=== PATIENT | female | born 1995 | race Caucasian/White ===

== ENCOUNTER 2016-08-27 12:55 | Emergency (ER) | payer BC ==
[2016-08-27 13:03] VITALS: BP 146/81; PULSE 86; TEMP 97.8; BMI 25.0
--- NOTE | 2016-08-27 14:03 | PDOC ---
History of Present Illness - General Chief Complaint: Urinary Problem Stated Complaint: NAUSEA, POSSIBLE UTI Time Seen by Provider: 08/27/16 13:44 - History of Present Illness Initial Comments: 08/27/16 14:02 CHIEF COMPLAINT: vaginal lesions HISTORY OF PRESENT ILLNESS: 21 yo F presents to [facility] with complaints of vaginal lesions and accompanying dysuria. Patient states 'it [place] when the urine hits the lesions." Patient reports unprotected sex with single partner of two years one week ago. Patient states she was seen at [facility] at school yesterday and was told she did not have a UTI and had a negative test. No recent travel or sick contacts. 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 Denies tobacco, alcohol, illicit drug use. SURGICAL HISTORY: Denies ALLERGIES: No known drug allergies REVIEW OF SYSTEMS General/Constitutional: Denies fever or chills. Genitourinary: Dysuria, vaginal lesions. Denies urinary frequency, or change in urination. PHYSICAL EXAM General Appearance: Well-appearing, appropriately dressed. No apparent distress. Respiratory/Chest: Lungs CTAB. Cardiovascular: RRR. S1, S2. Vascular Pulses: Dorsalis-Pedis (R): 2+, Dorsalis-Pedis (L): 2+ Pelvic exam: Multiple ulcerated lesions approximately 3-5 cm in diameter to labia b/l. Musculoskeletal/Extremities: Normal inspection. FROM of all extremities, normal capillary refill. No tenderness to extremities, pedal edema, swelling, erythema or deformity. Integumentary: See pelvic. Appropriate color, dry, warm. 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 Fully oriented, alert. Appropriate mood/affect. Motor strength 5/5. No appreciable EOM palsy, facial droop or sensory deficit. 08/27/16 15:17 08/27/16 15:46 Past History - Past Medical History Allergies/Adverse Reactions: Allergies Allergy/AdvReac Type Severity Reaction Status Date / Time No Known Allergies Allergy Unverified 08/27/16 13:02 Home Medications: Ambulatory Orders Atarax 25 25 mg PRN 10/08/14 Clindamycin Phos/Benzoyl Perox [Benzaclin Gel] 50 gm TP DAILY 12/31/14 Acyclovir [Zovirax -] 200 mg PO 5XD #50 capsule 08/27/16 Other medical history: denies - Psycho/Social/Smoking Cessation Hx Suicidal Ideation: No Smoking History: Never smoked Information on smoking cessation initiated: No Hx Alcohol Use: No Drug/Substance Use Hx: No Substance Use Type: None *Physical Exam - Vital Signs Last Vital Signs Temp Pulse Resp BP Pulse Ox 97.8 F 86 18 146/81 100 08/27/16 12:59 08/27/16 12:59 08/27/16 12:59 08/27/16 12:59 08/27/16 12:59 Medical Decision Making - Medical Decision Making 08/27/16 15:21 21 yo F with no PMH presents to ED with genital lesions accompanied by dysuria. Clinical presentation consistent with genital herpes. -HSV swab -Acyclovir po rx sent to pharm Advised patient to take medication as prescribed and f/u eviscerator. Advised patient of signs and symptoms for return to ER; patient verbalized understanding and agrees to plan. *DC/Admit/Observation/Transfer Diagnosis at time of Disposition: Herpes genitalis Qualifiers: Herpes simplex infection site: vulvovaginitis Qualified Code(s): A60.04 - Herpesviral vulvovaginitis - Discharge Dispostion Disposition: HOME Condition at time of disposition: Stable Admit: No - Prescriptions Prescriptions: Acyclovir [Zovirax -] 200 mg PO 5XD #50 capsule - Referrals Referrals: Jeff Kahn MD [Primary Care Provider] - - Patient Instructions Printed Discharge Instructions: DI for Genital Herpes Additional Instructions: Please take medication as prescribed and follow up with your lettuce trimmer. If you experience any fever, nausea, vomiting, diarrhea, or any new or worsening symptoms, please return to the ER.
[2016-08-27 14:18] LABS: URINE APPEARANCE SLCLOUDY; URINE BILIRUBIN NEGATIVE (NEGATIVE); URINE COLOR YELLOW; URINE GLUCOSE (UA) NEGATIVE (NEGATIVE); URINE KETONE NEGATIVE (NEGATIVE); URINE NITRITE NEGATIVE (NEGATIVE); URINE UROBILINOGEN NEGATIVE E.U./dl (0.2-1.0)
[2016-08-27 14:20] LABS: URINE BLOOD 3+ (NEGATIVE); URINE LEUK ESTERASE 3+ (NEGATIVE); URINE PROTEIN 2+ (NEGATIVE)
[2016-08-27 14:22] LABS: URINE BACTERIA RARE /hpf (NONE SEEN); URINE MUCUS RARE; URINE RBC 205 /hpf (0-3); URINE WBC 490 /hpf (3-5); YEAST FEW
== END 2016-08-27 14:57 | disposition home or self-care (01) ==
LOC: JERFT 12:55
DX: A60.04 Herpesviral vulvovaginitis (principal)
CPT/HCPCS: 36415; 81003; 81015; 84703; 87086; 87255; 87491; 87591; 99281-25

== ENCOUNTER 2024-02-15 22:50 | Emergency (ER) | payer BC, OTHER ==
[2024-02-15 22:59] VITALS: BP 130/79; PULSE 60; RESP 18; TEMP 97.3; BMI 22.1
[2024-02-15] MEDS ORDERED: ONDANSETRON 4 MG/2 ML VIAL ONE (23:22)
[2024-02-15] MEDS: SODIUM CHLORIDE 1,000 ML IV ONE (23:22)
[2024-02-15] MEDS ORDERED: PANTOPRAZOLE SODIUM 40 MG VIAL ONE (23:22)
[2024-02-15 23:24] LABS: HEMATOCRIT 36.5 % (32.4-45.2); HEMOGLOBIN 11.9 G/dL (10.7-15.3); MCH 31.8 pg (25.7-33.7); MCHC 32.7 g/dl (32.0-36.0); MEAN CELL VOLUME 97.3 fl (80-96); PLATELET COUNT 184.7 10^3/uL (134-434); RBC 3.75 10^6/uL (3.60-5.2); RDW 13.3 % (11.6-15.6); WHITE BLOOD COUNT 7.6 10^3/uL (4.0-10.8)
[2024-02-15] MEDS: PANTOPRAZOLE SODIUM 40 MG VIAL IVPUSH ONE (23:26)
[2024-02-15] MEDS: ONDANSETRON 4 MG/2 ML VIAL IVPUSH ONE (23:26)
[2024-02-15 23:41] LABS: HCG,QUALITATIVE URINE Negative
[2024-02-15 23:43] LABS: ALBUMIN 4.3 g/dl (3.4-5.0); BILIRUBIN,TOTAL 0.6 mg/dl (0.2-1); CALCIUM 9.2 mg/dl (8.5-10.1); CREATININE 0.7 mg/dl (0.6-1.3); POTASSIUM 3.3 mmol/L (3.5-5.1); TOT PROT 6.2 g/dl (6.4-8.2)
== END 2024-02-16 00:16 | disposition home or self-care (01) ==
LOC: FER 22:50
PROC: 3E033GC Introduction of Other Therapeutic Substance into Peripheral Vein, Percutaneous Approach (ICD-10-PCS; principal; 2024-02-15)
PROC: 3E033GC Introduction of Other Therapeutic Substance into Peripheral Vein, Percutaneous Approach (ICD-10-PCS; 2024-02-15)
PROC: 3E0337Z Introduction of Electrolytic and Water Balance Substance into Peripheral Vein, Percutaneous Approach (ICD-10-PCS; 2024-02-15)
DX: R10.13 Epigastric pain (principal); R11.0 Nausea; R63.0 Anorexia
CPT/HCPCS: 36415; 80053; 81003; 81015; 83690; 84703; 85027; 99284-25